=== PATIENT | male | born 1930 | race Caucasian/White ===

== ENCOUNTER 2018-12-25 10:38 | Emergency (ER) | payer MEDICARE, OTHER ==
[~2018-12-25] VITALS: Ht 182.9 cm; Wt 77.1 kg
[~2018-12-25 10:38] MED LIST: Afeditab Cr30 MG PO; CHOL10002; CITA20 PO; Calcium 500 MG1 EACH PO; DOXA4 PO; FINA5 PO; GLUCOSAMINE1000 MG PO; LEVSOD75 PO; MULTI VITAMIN1 EACH PO; Omeprazole20 M1 PO; TRAZ150T57 PO
[2018-12-25] MEDS ORDERED: SERT100 PO (11:18)
[2018-12-25] MEDS ORDERED: NIFE30ER PO (11:18)
== END 2018-12-25 11:35 | disposition home or self-care (01) ==
LOC: ER 10:38
DX: K59.00 Constipation, unspecified (principal); E03.9 Hypothyroidism, unspecified; Z79.899 Other long term (current) drug therapy
CPT/HCPCS: 74019; 99283-25

== ENCOUNTER 2019-03-08 20:24 | Emergency (ER) | payer MEDICARE, OTHER ==
[~2019-03-08] VITALS: Ht 188 cm; Wt 77.1 kg
[~2019-03-08 20:24] MED LIST changes: +NIFE30ER PO; +SERT100 PO
[2019-03-08 20:35] LABS: Calcium, Ionized (POC) 1.35 mmol/L (1.10-1.46); Chloride (POC) 115 mmol/L (98-108); Creatinine (POC) 2.3 mg/dL (0.8-1.3); Glucose (ISTAT POC) 192 mg/dL (70-99); Hemoglobin (POC) 15.3 g/dL (13.5-17.5); Sodium (POC) 138 mmol/L (135-148); Total CO2 (POC) 12 mmol/L (21-32)
== END 2019-03-08 20:27 ==
LOC: ER 20:24
PROVIDERS: Emergency Medicine
DX: I46.9 Cardiac arrest, cause unspecified (principal); I10 Essential (primary) hypertension; I48.91 Unspecified atrial fibrillation; N40.0 Benign prostatic hyperplasia without lower urinary tract symptoms; K21.9 Gastro-esophageal reflux disease without esophagitis; Z79.899 Other long term (current) drug therapy
CPT/HCPCS: 80047; 85014; 92950; 96374-59; 96375-59; 99285-25